=== PATIENT | female | born 1960 | race Caucasian/White ===

== ENCOUNTER 2022-08-07 15:08 | Emergency (ER) | payer MEDICAID, OTHER ==
[~2022-08-07] VITALS: Ht 154.9 cm; Wt 96.0 kg
[2022-08-07 15:15] VITALS: BP 109/67
[2022-08-07] MEDS ORDERED: ACETAMINOPHEN 325MG TABLET PO STA (15:23)
[2022-08-07 16:37] LABS: BASOPHILS % 1.9 % (0.0-2.0); EOSINOPHILS % 3.9 % (0.0-5.0); LYMPHOCYTES % 13.4 % (20.0-50.0); MEAN CORPUSCULAR HEMOGLOBIN 30.6 pg (28.0-32.0); MEAN PLATELET VOLUME 7.8 fl (7.4-10.4); NEUTROPHILS % 68.8 % (40.0-76.0); PLATELET 160 x1000/uL (130-400); RED BLOOD CELL COUNT 3.26 mill/uL (4.2-5.4); RED CELL DISTRIBUTION WIDTH 16.3 % (11.6-14.6)
[2022-08-07 16:56] LABS: CHLORIDE 101 mEq/L (98-107)
[2022-08-07] MEDS ORDERED: ACETAMINOPHEN 325MG TABLET PO NR (18:45)
[2022-08-08] MEDS ORDERED: ACETAMINOPHEN 325MG TABLET PO PRN (09:30)
[2022-08-08] MEDS ORDERED: ONDANSETRON HCL 4MG/2ML INJ IV PRN (09:30)
== END 2022-08-07 19:30 | disposition left against medical advice (07) ==
LOC: ER 15:08 → EDBEDREQTM 18:47 → EDBEDREQ 18:47 → ENRESERV 20:37 → UNDOADMIN 08-08 01:23 → 7EST 08-08 01:23 → MICUSO 08-08 04:21 → 7EST 08-08 04:21
DX: I13.2 Hypertensive heart and chronic kidney disease with heart failure and with stage 5 chronic kidney disease, or end stage renal disease (principal); N18.6 End stage renal disease; I50.30 Unspecified diastolic (congestive) heart failure
CPT/HCPCS: 36415; 71045; 80053; 83880; 84484; 85025; 99284; 99285